=== PATIENT | female | born 1960 | race Two or more races ===

== ENCOUNTER 2024-10-28 08:37 | Emergency (ER) | payer MEDICARE, OTHER ==
[~2024-10-28] VITALS: Ht 170.2 cm; Wt 115.0 kg
[2024-10-28 08:56] VITALS: BP 184/96; PULSE 64; RESP 17; TEMP 97.9; O2SAT 96
[2024-10-28] MEDS: KETOROLAC TROMETHAMINE 60 MG/2 ML VIAL IM ONE (10:05)
[2024-10-28] MEDS: OxyCODONE HCL/ACETAMINOPHEN 5-325 MG TABLET PO ONE (12:14)
[2024-10-28] MEDS ORDERED: IBUP-1492 PO (12:52)
== END 2024-10-28 14:11 | disposition home or self-care (01) ==
LOC: EMS 08:37
DX: S50.811A Abrasion of right forearm, initial encounter (principal); S50.311A Abrasion of right elbow, initial encounter; I10 Essential (primary) hypertension; Z99.2 Dependence on renal dialysis; W01.0XXA Fall on same level from slipping, tripping and stumbling without subsequent striking against object, initial encounter; Y93.01 Activity, walking, marching and hiking; Y92.480 Sidewalk as the place of occurrence of the external cause; Y99.8 Other external cause status
CPT/HCPCS: 99284; 73080; 73090; 96372; J1885; 99283